=== PATIENT | male | born 1990 | race Caucasian/White ===

== ENCOUNTER 2017-11-21 01:43 | Emergency (ER) | payer MEDICAID ==
[~2017-11-21] VITALS: Ht 175.3 cm; Wt 77.1 kg
[2017-11-21 02:30] VITALS: BP 136/82
[2017-11-21] MEDS ORDERED: FLUORESCEIN SOD 1 MG TEST STRIP EACHEYE ONE (02:30)
[2017-11-21] MEDS ORDERED: TETRACAINE HCL 0.5% OPTH(EYE) SOLN 4ML EACHEYE ONE (02:30)
[2017-11-21] MEDS ORDERED: KETOROLAC TROMETH 60MG/2ML VIAL IM ONE (02:45)
[2017-11-21] MEDS ORDERED: methylPREDNISolone SOD SUCC 125 MG/2 ML VL IM ONE (03:00)
[2017-11-21] MEDS ORDERED: diphenhdrAMINE HCL 25 MG CAP PO ONE (03:00)
[2017-11-21] MEDS ORDERED: ALPRAZolam 0.5 MG TAB PO ONE (04:00)
[2017-11-21] MEDS ORDERED: TETANUS-DIPTH-ACEL PERTUSSIS 0.5ML SYRG IM ONE (04:45)
== END 2017-11-21 05:02 | disposition home or self-care (01) ==
LOC: ER 01:45
DX: H10.9 Unspecified conjunctivitis (principal); F17.210 Nicotine dependence, cigarettes, uncomplicated; F12.10 Cannabis abuse, uncomplicated; F15.10 Other stimulant abuse, uncomplicated
CPT/HCPCS: 96372; 99284; J1885; J2930; J7030

== ENCOUNTER 2023-08-13 12:30 | Emergency (ER) | payer MEDICAID ==
[~2023-08-13] VITALS: Ht 177.8 cm; Wt 72.7 kg
[2023-08-13 12:44] VITALS: BP 146/62; PULSE 72; RESP 16; O2SAT 96
[2023-08-13] MEDS ORDERED: SODIUM CHLORIDE 0.9% 1,000 ML IV ONE (13:00)
== END 2023-08-13 15:23 | disposition left against medical advice (07) ==
LOC: EDBD 12:30 → ER 12:30 → EDUNIT# 12:30 → ER 15:23
DX: G93.41 Metabolic encephalopathy (principal); F17.210 Nicotine dependence, cigarettes, uncomplicated; F15.90 Other stimulant use, unspecified, uncomplicated

== ENCOUNTER 2024-10-19 09:18 | Emergency (ER) | payer OTHER ==
[2024-10-19 09:37] VITALS: BP 119/84; PULSE 107; RESP 16; O2SAT 98
== END 2024-10-19 11:00 | disposition left against medical advice (07) ==
LOC: ER 09:18
DX: M79.10 Myalgia, unspecified site (principal); R05.9 Cough, unspecified; R50.9 Fever, unspecified; Z53.21 Procedure and treatment not carried out due to patient leaving prior to being seen by health care provider

== ENCOUNTER 2024-10-24 13:13 | Emergency (ER) | payer OTHER ==
[~2024-10-24] VITALS: Ht 175.3 cm; Wt 72.7 kg
[2024-10-24 13:22] VITALS: BP 128/85; PULSE 98; RESP 20; O2SAT 99
[2024-10-24] MEDS ORDERED: IBUP-1455 PO (16:19)
[2024-10-24] MEDS ORDERED: AUG875T PO (16:19)
--- NOTE | 2024-10-24 16:20 | ED.PDOC ---
Eye-HPI HPI Comments 34-year-old male complaining of right ear pain. Patient states he has been having headache and pain that started this morning. Nothing makes it better, nothing makes it worse. Patient states intermittent chills and fever. No prior history of recurrent ear infections. Chief Complaint: Earache Time Seen by MD: 15:27 Primary Care Provider: ABELINO Mena Notes: Nurses Notes Allergies: Coded Allergies: NO KNOWN ALLERGIES (Unverified , 10/20/14) Information Source: Patient Mode of Arrival: Wheelchair Past Medical History PAST MEDICAL HISTORY: Denies Surgical History: Denies all surgeries Family History Family History: Unknown Social History Smoker: Cigarettes Alcohol: Occasionally Drugs: Marijuana, Methamphetamine Lives In: Home Constitutional: denies: chills, diaphoresis, fatigue, fever, malaise, sweats, weakness, others EENTM: reports: ear pain; denies: blurred vision, double vision, ear bleeding, ear discharge, ear drainage, ear ringing, eye pain, eye redness, hearing loss, mouth pain, mouth swelling, nasal discharge, nose bleeding, nose congestion, nose pain, photophobia, tearing, throat pain, throat swelling, voice changes, others Respiratory: denies: cough, hemoptysis, orthopnea, SOB at rest, shortness of breath, SOB with excertion, stridor, wheezing, others Cardiovascular: denies: chest pain, dizzy spells, diaphoresis, Dyspnea on exertion, edema, irregular heart beat, left arm pain, lightheadedness, palpitations, PND, syncope, others Gastrointestinal: denies: abdomen distended, abdominal pain, blood streaked bowels, constipated, diarrhea, dysphagia, difficulty swallowing, hematemesis, melena, nausea, poor appetite, poor fluid intake, rectal bleeding, rectal pain, vomiting, others Genitourinary: denies: burning, dysuria, flank pain, frequency, hematuria, incontinence, penile discharge, penile sore, pain, testicle pain, testicle swelling, urgency, others Neurological: denies: dizziness, fainting, headache, left sided numbness, left sided weakness, numbness, paresthesia, pre-existing deficit, right sided numbness, right sided weakness, seizure, speech problems, tingling, tremors, weakness, others Musculoskeletal: denies: back pain, gout, joint pain, joint swelling, muscle pain, muscle stiffness, neck pain, others Integumetry: denies: bruises, change in color, change in hair/nails, dryness, laceration, lesions, lumps, rash, wounds, others Physical Exam General Appearance: No Apparent Distress, Normal HEENT: Normal ENT Inspection, Pharynx Normal, TM Abnormal (R) (Erythemic, bulging) Neck: Full Range of Motion, Non-Tender, Normal, Normal Inspection Respiratory: Chest Non-Tender, Lungs Clear, No Accessory Muscle Use, No Respiratory Distress, Normal Breath Sounds Cardiovascular: No Edema, No JVD, No Murmur, No Gallop, Normal Peripheral Pulses, Regular Rate/Rhythm Breast Exam: Deferred Gastrointestinal: No Organomegaly, Non Tender, No Pulsatile Mass, Normal Bowel Sounds, Soft Genitalia: Deferred Pelvic: Deferred Rectal: Deferred Extremities: No calf tenderness, Normal capillary refill, Normal inspection, Normal range of motion, Non-tender, No pedal edema Musculoskeletal : Apperance: Normal Neurologic: Alert, medical affairs specialist II-XII nml as Tested, No Motor Deficits, Normal Affect, Normal Mood, No Sensory Deficits Cerebellar Function: Normal Reflexes: Normal Skin: Dry, Normal Color, Warm Lymphatic: No Adenopathy Was a procedure done? Was a procedure done?: No EENT DIFF Eye: N/A Ear: Otitis Media, Perforation, Pharyngitis, Sinusitis X-Ray, Labs, Meds, VS Vital Signs Date Time Temp Pulse Resp B/P (MAP) Pulse Ox O2 Delivery O2 Flow Rate FiO2 10/24/24 13:22 98.3 98 20 128/85 (99) 99 X-Ray, Labs, Meds, VS Comment Imaging: X-rays and CT scans were reviewed and interpreted by this provider, imaging shows no fractures and no pathological disease. Pending radiology review. Laboratory: Labs reviewed and interpreted by this provider. No significant abnormalities noted. Patient has prior medical visits reviewed. Med reconciliation performed Vital signs reviewed Time of 1ST Reevaluation: 16:19 Reevaluation 1ST: Improved Patient Education/Counseling: Diagnosis, Treatment, Need For Follow Up (Follow up with the PCP in the next 3-5 days. Return to the emergency department if symptoms worsen in the next 24-48 hours.) Family Education/Counseling: Treatment Departure 1 Departure Time of Disposition: 16:18 Impression: Primary Impression: Otitis media Qualified Codes: H66.001 - Acute suppurative otitis media without spontaneous rupture of ear drum, right ear Disposition: HOME / SELF CARE / HOMELESS Condition: Fair e-Prescriptions Ibuprofen Micronized (Ibuprofen) 800 Mg Tab 800 MG PO TID PRN, #30 TAB Prov: SHEILA HINTON 10/24/24 Amoxicillin & Pot Clavulanate (AUGMENTIN TABLET) 875 Mg Tb 875 MG PO BID for 7 Days, #14 TAB Prov: SHEILA HINTON 10/24/24 Discharged With: Self Critical Care Note Critical Care Time?: No Stability Stability form required: No Heart Score Heart Score: Heart Score Response (Comments) Value History N/A 0 EKG N/A 0 Age N/A 0 Risk Factors N/A 0 Troponin N/A 0 Total 0 SHEILA HINTON Oct 24, 2024 16:20
== END 2024-10-24 16:28 | disposition home or self-care (01) ==
LOC: ER 13:13
DX: H66.91 Otitis media, unspecified, right ear (principal); R51.9 Headache, unspecified; F17.210 Nicotine dependence, cigarettes, uncomplicated

== ENCOUNTER 2024-10-28 14:55 | Emergency (ER) | payer OTHER ==
[~2024-10-28] VITALS: Ht 175.3 cm; Wt 71.0 kg
[~2024-10-28 14:55] MED LIST: AUG875T PO; IBUP-1455 PO
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
[2024-10-28 19:35] VITALS: BP 133/89; PULSE 100; RESP 16; TEMP 98.5; O2SAT 99
== END 2024-10-28 19:45 | disposition home or self-care (01) ==
LOC: ER 14:55
DX: S00.01XA Abrasion of scalp, initial encounter (principal); S06.9X0A Unspecified intracranial injury without loss of consciousness, initial encounter; F17.210 Nicotine dependence, cigarettes, uncomplicated; Z79.1 Long term (current) use of non-steroidal anti-inflammatories (NSAID); Z79.2 Long term (current) use of antibiotics; W13.2XXA Fall from, out of or through roof, initial encounter; Y93.89 Activity, other specified; Y92.89 Other specified places as the place of occurrence of the external cause; Y99.8 Other external cause status
CPT/HCPCS: 70450

== ENCOUNTER 2024-10-31 01:54 | Emergency (ER) | payer OTHER ==
[~2024-10-31] VITALS: Ht 175.3 cm; Wt 71.6 kg
[2024-10-31 02:13] VITALS: BP 127/84; PULSE 94; RESP 20; O2SAT 98
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
[2024-10-31] MEDS: HYDROcodone-ACET 10/325MG TAB PO ONE (02:26)
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
[2024-10-31] MEDS ORDERED: GABA300T4 PO (04:25)
== END 2024-10-31 04:43 | disposition home or self-care (01) ==
LOC: ER 01:54
DX: S02.80XA Fracture of other specified skull and facial bones, unspecified side, initial encounter for closed fracture (principal); S00.431A Contusion of right ear, initial encounter; S00.01XA Abrasion of scalp, initial encounter; F17.210 Nicotine dependence, cigarettes, uncomplicated; F12.90 Cannabis use, unspecified, uncomplicated; F15.90 Other stimulant use, unspecified, uncomplicated; Z79.899 Other long term (current) drug therapy; V86.59XA Driver of other special all-terrain or other off-road motor vehicle injured in nontraffic accident, initial encounter; Y93.89 Activity, other specified; Y92.89 Other specified places as the place of occurrence of the external cause; Y99.8 Other external cause status
CPT/HCPCS: 70450; 71250; 72125